=== PATIENT | female | born 1990 | race Caucasian/White ===

== ENCOUNTER 2023-10-26 19:36 | Emergency (ER) | payer SELFPAY ==
[2023-10-26 19:36] VITALS: BP 134/98; PULSE 123; RESP 16; TEMP 36.3; O2SAT 100; BMI 27.2
[2023-10-26 19:49] VITALS: BMI 27.2
--- NOTE | 2023-10-26 20:00 | EX.ED.DYSGE1 ---
HPI History of Present Illness Chief Complaint: Meds Only Detail of Chief Complaint: Awoke with a bat in room Informant: patient Onset/Context/Timing Onset: Today Quality: No known bite Location: Bat in room patient was sleeping in Current Severity: Not applicable Maximum Severity: Not applicable Worsened by: Unknown Relieved by: Not applicable Associated Symptoms Associated Symptoms: None Narrative Narrative: Patient is a 32-year-old female with no seeming past medical history. She presents after talking with her practitioner because of possible bat bite. did trap the bat and has the bat. She has not been immunized recently or ever. Prior similar symptoms: No Recent Illness/Hospitalization: No PFSH PFSH no medical history Allergy/AdvReac Type Severity Reaction Status Date / Time No Known Allergies Allergy Verified 10/26/23 19:38 Social History (Updated 10/26/23 @ 20:[address] Ridge Young MD) household members: spouse and children housing: [facility] ED Constitutional Constitutional ED: Reports other Details: None Eyes Eyes: Reports other Details: None Integumentary Reports rash Hematologic/Lymphatic Hematologic/Lymphatic: Denies easy bleeding or easy bruising EXAM Physical Exam Const Vital Signs: 10/26/23 19:36 Temperature 97.3 F L Temperature Source Temporal Pulse Rate 123 H Respiratory Rate 16 Blood Pressure 134/98 H Blood Pressure Mean 110 Pulse Ox 100 Oxygen Delivery Method Room Air Positive well nourished and well developed General Appearance ED: well developed and NAD HEENT Reports dry mucous membranes HEENT Narrative: Head is atraumatic normocephalic. Ears normal. Mouth ED: Yes dry mucous membranes Mouth: dry mucous membranes Eyes PERRL and EOMs intact bilaterally Resp normal respiratory effort Cardio regular rate and regular rhythm Extremity normal to inspection Neuro oriented x3 and CN's II-XII intact bilaterally Sensorium / Orientation: alert Psych Mood & Affect: anxious Skin no rashes or lesions noted MDM MDM MDM Narrative Medical decision making narrative: Since patient awoke in room with bat presumption is patient was bit. Will treat with rabies immunoglobulin and vaccine. Discharge Plan Triage Chief Complaint: Meds Only ED Provider: Ridge Young Dx/Rx/DC Orders Clinical Impression: Exposure to bat without known bite Instructions: Rabies Immune Globulin, Human Injection, Understanding Rabies Primary Care Provider: Leelee Burger CANINE ENFORCEMENT OFFICER Referrals: Leelee Burger CANINE ENFORCEMENT OFFICER, CANINE ENFORCEMENT OFFICER-C [Primary Care Provider] - As Needed Print Language: Zambian Disposition Disposition: Home, Self Care
[2023-10-26] MEDS: Rabies Vaccine,Human Diploid 2.5 UNITS Vial IM (21:14)
[2023-10-26] MEDS: Rabies Immune Globulin/PF 300 UNIT/ML, 5 ML VIAL 1310 UNIT IM (21:19)
[2023-10-26 21:41] VITALS: BP 128/85; PULSE 86; RESP 18; TEMP 36.3; O2SAT 100
== END 2023-10-26 21:42 | disposition home or self-care (01) ==
LOC: ED 20:29
PROVIDERS: Emergency Provider Emergency Medicine; PCP Nurse Practitioner Family; Visit Provider Emergency Medicine
DX: Z04.89 Encounter for examination and observation for other specified reasons (principal); Z23 Encounter for immunization
CPT/HCPCS: 90675; 99281; 90375